=== PATIENT | female | born 1960 | race Caucasian/White ===

== ENCOUNTER 2016-07-15 02:03 | Emergency (ER) | payer BC ==
--- NOTE | 2016-07-15 02:09 | PDOC ---
[id number] 4d THROAT PAIN Time Seen by Provider: 07/15/16 02:09 - History of Present Illness Initial Comments: This 56-year-old woman with a history of hypertension/hyperlipidemia, presents with left-sided neck pain that awakened her from sleep. The patient states that the pain radiates from the mid neck area up to her left ear. She states that she feels like she might be "getting sick", which she explains as feeling that she might be getting a viral infection. She denies nasal congestion/sore throat/fever/chills. She has no shortness of breath, chest pain, nausea or diaphoresis. Patient states that she has no history of middle ear infections or effusions. She has however had pain in her ears during descent of airplane while traveling. Past History - Past Medical History Allergies/Adverse Reactions: Allergies Allergy/AdvReac Type Severity Reaction Status Date / Time No Known Allergies Allergy Verified 07/15/16 02:04 Home Medications: Ambulatory Orders Metoprolol Tartrate [Lopressor -] 25 mg PO BID 10/30/14 Anemia: No Asthma: No Cancer: No Cardiac Disorders: No CVA: No COPD: No CHF: No Dementia: No Diabetes: No GI Disorders: Yes (ABD. PAIN) Disorders: No HTN: Yes Hypercholesterolemia: Yes HIV: No Liver Disease: No Suicide Attempt (Hx): No Seizures: No Thyroid Disease: No - Surgical History Abdominal Surgery: No Appendectomy: No Cardiac Surgery: No Cholecystectomy: Yes Lung Surgery: No Neurologic Surgery: No Orthopedic Surgery: No - Reproductive History (#): 4 Para: 4 - Psycho/Social/Smoking Cessation Hx Anxiety: No Suicidal Ideation: No Smoking Status: No Smoking History: Never smoked Have you smoked in the past 12 months: No Number of Cigarettes Smoked Daily: 0 Hx Alcohol Use: No Drug/Substance Use Hx: No Substance Use Type: None Hx Substance Use Treatment: No Review of Systems - Review of Systems Able to Perform ROS?: Yes Comments:: 12 point review of systems is negative except for what is noted in the history of present illness *Physical Exam - Physical Exam Comments: GENERAL: Adult female, alert and oriented 3 in no acute distress HEAD: Normal with no signs of trauma. EYES: PERRLA, EOMI, sclera anicteric, conjunctiva clear. ENT: Ears normal (TM and canals bilaterally), nares patent, oropharynx clear without exudates. Dry mucous membranes. NECK: Normal range of motion, supple without lymphadenopathy, JVD, or masses. Mild tenderness of the left mid neck without masses or bruits LUNGS: Breath sounds equal, clear to auscultation bilaterally. No wheezes, and no crackles. HEART:Regular rate and rhythm, normal S1 and S2 without murmur, rub or gallop. ABDOMEN:.normal bowel sounds No guarding,tenderness or rebound.No masses No distention. EXTREMITIES: Normal range of motion, no edema. No clubbing or cyanosis. No erythema, or tenderness. NEUROLOGICAL: Cranial nerves II through XII grossly intact. Normal speech. No focal neurological deficits. MUSCULOSKELETAL: Back non-tender to palpation, no CVA tenderness SKIN: Warm, Dry, normal turgor, no rashes or lesions noted. Medical Decision Making - Medical Decision Making Although the medical presentation most consistent with eustachian tube dysfunction, because the patient has a history of hypertension and hyperlipidemia, twelve-lead electrocardiogram will be performed. EKG shows normal sinus rhythm at 68 beats for minute; axis, intervals and wave forms are all normal. there isno evidence of acute ST or T-wave abnormalities. Patient advised to take antihistamine such as chlorpheniramine; decongestants unfortunately are contraindicated with her history of hypertension. Patient does not have an ENT doctor; referral information with Dr. Rodríguez Machuca will be given to her with whom she should follow-up if she continues to have pain *DC/Admit/Observation/Transfer Diagnosis at time of Disposition: Eustachian tube dysfunction Qualifiers: Laterality: left Qualified Code(s): H69.82 - Other specified disorders of Eustachian tube, left ear - Discharge Dispostion Disposition: HOME Condition at time of disposition: Stable - Referrals Referrals: Rodríguez Machuca MD [Staff Physician] - - Patient Instructions Printed Discharge Instructions: DI for Eustachian Tube Dysfunction-Adult Additional Instructions: rest, drink plenty of fluids can use antihistamine(such as chlorpheniramine, safe for people with high blood pressure) use motrin as needed for pain followup with ENT(Dr Machuca)if pain persists see your general doctor within the next week return to ER if pain worsens
[2016-07-15 02:10] VITALS: PULSE 72; TEMP 97.6; BMI 25.6
[2016-07-15 03:05] VITALS: BP 149/95
[2016-07-15] MEDS ORDERED: IBUPROFEN 600 MG TABLET (FP) PO ONE ×2 (03:10→03:12)
--- NOTE | 2016-07-16 12:38 | EKG ---
Test Reason : Blood Pressure : / mmHG Vent. Rate : 068 BPM Atrial Rate : 068 BPM P-R Int : 142 ms QRS Dur : 086 ms QT Int : 420 ms P-R-T Axes : 022 015 025 degrees QTc Int : 446 ms SINUS RHYTHM NONSPECIFIC ST ABNORMALITY WHEN COMPARED WITH ECG OF 27-JUN-2015 12:49, NO SIGNIFICANT CHANGE WAS FOUND Confirmed by VANE JOSEPH MD ([id number]) on 07/16/2016 12:38:28 PM Referred By: MD REYES Confirmed By:VANE JOSEPH MD
== END 2016-07-15 03:14 | disposition home or self-care (01) ==
LOC: FER 02:03
DX: H69.82 Other specified disorders of Eustachian tube, left ear (principal); I10 Essential (primary) hypertension; E78.00 Pure hypercholesterolemia, unspecified
CPT/HCPCS: 93005; 99281-25

== ENCOUNTER 2016-11-26 10:59 | Emergency (ER) | payer BC ==
[2016-11-26 11:06] VITALS: BP 164/91; PULSE 82; TEMP 97.8; BMI 25.6
[2016-11-26] MEDS ORDERED: KETOROLAC TROMETHAMINE 60 MG/2 ML VIAL IM ONE (11:45)
[2016-11-26] MEDS ORDERED: KETOROLAC TROMETHAMINE 60 MG/2 ML VIAL ONE (11:49)
--- NOTE | 2016-11-26 12:01 | PDOC ---
History of Present Illness - General Chief Complaint: Back Pain Stated Complaint: BACK PAIN Time Seen by Provider: 11/26/16 11:33 History Source: Patient Exam Limitations: No Limitations - History of Present Illness Initial Comments: 11/26/16 11:41 CHIEF COMPLAINT: Left shoulder pain. HISTORY OF PRESENT ILLNESS: Patient is an otherwise healthy 56-year-old female presents with left shoulder pain, 10 out of 10. Patient states that she was lifting a heavy bed while she was in [place] and has been unable to move left shoulder. Reports pain as stabbing. PMH: None MEDS:None ALLERGIES: None REVIEW OF SYSTEMS: GENERAL/CONSTITUTIONAL: Awake alert and oriented HEAD, EYES, EARS, NOSE AND THROAT: No change in vision. No facial edema, no bruising. NO active bleeding. Nares intact. RESPIRATORY: No cough, wheezing, or hemoptysis. CARDIAC: Denies chest pain, no shortness of breathe. MUSCULOSKELETAL: No spinal point tenderness, decreased range of motion to left shoulder.. NO CVA tenderness. No lateral neck pain. GI/: Denies abdominal pain, no nausea or vomiting, no bloody stool, no Hematuria. SKIN : No erythema or bruising noted. No abrasion or lacerations. NEUROLOGIC: No loss of consciousness, no numbness or tingling. PHYSICAL EXAM: GENERAL: Awake and alert and oriented x3. EYES: The pupils are equal, round, and reactive to light, with clear, conjunctiva. Good extraocular movement. No nystagmus NOSE: No nasal trauma . Midface stable EARS: The ear canals and tympanic membranes are normal without trauma. No drainage. NECK: No Lower cervical C-spine tenderness, no pain with chin to chest. CHEST: The lungs are clear without crackles, or wheezes. No subcutaneous emphysema. No crepitus. HEART: Heart is regular rhythm, with normal S1 and S2, no murmurs. ABDOMEN: The abdomen is soft and nontender with normal bowel sounds. There is no guarding or rebound. MUSCULOSKELETAL: No spinal point tenderness. No bruising or erythema. Pelvis stable. EXTREMITIES: No visible traumatic injury. Left frozen shoulder, decreased mobility unable to abduct arm. Unable to pronate and supinate hand. NEUROLOGICAL:Mental status: The patient is oriented x3. No Generalized headache , Romberg - SKIN: Without edema, erythema or bruising. No abrasions or lacerations. Past History - Past Medical History Allergies/Adverse Reactions: Allergies Allergy/AdvReac Type Severity Reaction Status Date / Time No Known Allergies Allergy Verified 11/26/16 11:05 Home Medications: Ambulatory Orders Metoprolol Tartrate [Lopressor -] 50 mg PO BID 10/30/14 Ibuprofen [Motrin -] 600 mg PO TID #21 tablet 11/26/16 Oxycodone HCl/Acetaminophen [Percocet 5-325 mg Tablet] 1 tab PO Q6H #12 tablet MDD 4 11/26/16 Anemia: No Asthma: No Cancer: No Cardiac Disorders: No CVA: No COPD: No CHF: No Dementia: No Diabetes: No GI Disorders: Yes (ABD. PAIN) Disorders: No HTN: Yes Hypercholesterolemia: Yes HIV: No Liver Disease: No Suicide Attempt (Hx): No Seizures: No Thyroid Disease: No - Surgical History Abdominal Surgery: No Appendectomy: No Cardiac Surgery: No Cholecystectomy: No Lung Surgery: No Neurologic Surgery: No Orthopedic Surgery: No - Reproductive History (#): 4 Para: 4 - Psycho/Social/Smoking Cessation Hx Anxiety: No Suicidal Ideation: No Smoking Status: No Smoking History: Never smoked Have you smoked in the past 12 months: No Number of Cigarettes Smoked Daily: 0 Hx Alcohol Use: No Drug/Substance Use Hx: No Substance Use Type: None Hx Substance Use Treatment: No *Physical Exam - Vital Signs Last Vital Signs Temp Pulse Resp BP Pulse Ox 97.8 F 82 20 164/91 98 11/26/16 11:02 11/26/16 11:02 11/26/16 11:02 11/26/16 11:02 11/26/16 11:02 Medical Decision Making - Medical Decision Making 11/26/16 12:42 A/P: Patient here for left shoulder pain. Toradol 60 mg IM times one given, patient states the pain started after lifting heavy mattress. X-ray demonstrated osteopenia small rounded calcific density measuring 2 mm at the level office. Aspect of the glenohumeral joint. This could represent a small joints body or calcification in the tendon. Will treat patient for tendinitis of shoulder, arm sling, follow-up with orthopedics, anti-inflammatories. I discussed the physical exam findings, ancillary test results and final diagnoses with the patient. I answered all of the patient's questions. The patient was satisfied with the care received and felt comfortable with the discharge plan and treatment plan. The patient will call to arrange follow-up and will return to the Emergency Department with any new, persistent or worsening symptoms. *DC/Admit/Observation/Transfer Diagnosis at time of Disposition: Shoulder tendinitis Qualifiers: Laterality: left Qualified Code(s): M75.82 - Other shoulder lesions, left shoulder - Discharge Dispostion Disposition: HOME Condition at time of disposition: Good Admit: No - Prescriptions Prescriptions: Ibuprofen [Motrin -] 600 mg PO TID #21 tablet Oxycodone HCl/Acetaminophen [Percocet 5-325 mg Tablet] 1 tab PO Q6H #12 tablet MDD 4 - Referrals Referrals: Hunter Mayes MD [Primary Care Provider] - Michael Burt MD [Staff Physician] - - Patient Instructions Printed Discharge Instructions: Shoulder Tendinopathy Additional Instructions: 1. Please return to the emergency department with any redness, swelling, increased pain, or any other concerns. 2. Keep splint on. 3. Please follow up in the office of Dr. Burt within a week if pain persists. 4. No weightbearing 5. Ice and elevate when at rest. 6. Motrin for pain - Post Discharge Activity Work/School Note: Back to Work
== END 2016-11-26 12:57 | disposition home or self-care (01) ==
LOC: JERFT 10:59
PROC: 3E0233Z Introduction of Anti-inflammatory into Muscle, Percutaneous Approach (ICD-10-PCS; principal; 2016-11-26)
DX: M75.82 Other shoulder lesions, left shoulder (principal); I10 Essential (primary) hypertension; E78.00 Pure hypercholesterolemia, unspecified
CPT/HCPCS: 73030-TC-LT; 99281-25

== ENCOUNTER 2017-07-14 08:30 | Day surgery (SDC) | payer BC ==
[2017-07-13 10:34] VITALS: BMI 25.2
[2017-07-14] MEDS ORDERED: MIDAZOLAM HCL 2 MG/2 ML SINGLE DOSE VIAL ONE (10:59)
[2017-07-14] MEDS ORDERED: PROPOFOL 20 ML ONE (10:59)
[2017-07-14] MEDS ORDERED: BETAMET ACET/BETAMET NA PH 30 MG/5 ML VIAL IJ ONE (11:11)
[2017-07-14] MEDS ORDERED: BUPIVACAINE HCL/PF 0.25% (2.5MG/ML) 10 ML VIAL IJ ONE (11:11)
[2017-07-14] MEDS ORDERED: LIDOCAINE HCL 1%, 10 MG/ML (50 mL VIAL) IJ ONE (11:11)
[2017-07-14] MEDS ORDERED: IOHEXOL 180 MG/1 ML ML IJ ONE (11:11)
[2017-07-14] MEDS ORDERED: LIDOCAINE HCL 1%, 10 MG/ML (20ML VIAL) ONE (12:07)
[2017-07-14] MEDS ORDERED: BUPIVACAINE HCL/PF 0.25% (2.5MG/ML) 10 ML VIAL ONE (12:08)
[2017-07-14] MEDS ORDERED: BETAMET ACET/BETAMET NA PH 30 MG/5 ML VIAL ONE (12:08)
[2017-07-14 12:19] VITALS: BP 112/64; PULSE 79; TEMP 97.9
--- NOTE | 2017-07-14 15:38 | PROC ---
Procedure Note Procedure: Date of service: 07/14/2017 Preoperative Diagnosis: Low back pain and lumbar radiculopathy on Left Postoperative Diagnosis: Same Procedure Performed: Lumbar Epidural Steroid Injection (LESI) on Left L4-5 with dye under Fluoroscopy Anesthesia: Local / MAC Anesthesiologist: Procedure: I discussed with the patient in detail about the risks, benefits, and alternatives to treatment not only limited to infection, headache, numbness , weakness, and injury to nerves, blood vessels and muscles. The patient understood, agreed and signed the written consent. The patient was placed in the prone position with the head, abdomen and legs supported with the pillows. The lumbosacral area was prepped and draped with Betadine times three in a sterile fashion. Lumbar vertebrae were identified under the C-arm. At L4-5 level on the Left side, 3 ml of 1 % Lidocaine was infiltrated into the skin and subcutaneous tissue. A 3 inch, #20 gauge Tuohy needle was advanced to the epidural space with loss of resistance technique under fluoroscopic guidance. Aspiration was negative for cerebrospinal fluid and blood. 2ml of Omnipaque ( radio-opaque dye) was injected to confirm the tip of the needle into epidural space and spread of dye. There was no CSF or vascular spread. The spread of dye was noted cranially and caudally on epidurogram. Aspiration was done again which was negative. A solution of 2.5 ml of Celestone, 2.5 ml of 0.25% Marcaine and 2 ml of preservative-free Normal Saline and a total of 5 ml was injected slowly. While Tuohy needle was withdrawn 2.0 ml of 1 % Lidocaine was infiltrated. Bleeding was checked. Betadine was wiped off. A sterile bandage was placed. The patient tolerated the procedure well. There were no immediate complications. The patient was transferred to the recovery room. The patient was observed for some time and discharged as per ASU criteria. The patient was told to apply ice at the injection site. Follow up appointment was given and also call my office at [phone]. If there is any problem, call my office or report to Emergency Room. Jonathon Billy M.D.
== END 2017-07-14 12:20 | disposition home or self-care (01) ==
LOC: JASU-SURG 08:30
PROVIDERS: ATTEND Physical Medicine & Rehabilitation
PROC: 3E0R33Z Introduction of Anti-inflammatory into Spinal Canal, Percutaneous Approach (ICD-10-PCS; 2017-07-14)
PROC: B01BYZZ Fluoroscopy of Spinal Cord using Other Contrast (ICD-10-PCS; 2017-07-14)
PROC: 3E0R3BZ Introduction of Anesthetic Agent into Spinal Canal, Percutaneous Approach (ICD-10-PCS; principal; 2017-07-14 08:30)
DX: M54.16 Radiculopathy, lumbar region (principal); M54.5 Low back pain
CPT/HCPCS: 76000-TC-FY

== ENCOUNTER 2018-02-21 16:16 | Emergency (ER) | payer BC ==
[2018-02-21] MEDS ORDERED: KETOROLAC TROMETHAMINE 60 MG/2 ML VIAL IM ONE (16:38)
--- NOTE | 2018-02-21 16:39 | PDOC ---
History of Present Illness - General Chief Complaint: Pain Stated Complaint: RT ABD AND RT BACK PAIN Time Seen by Provider: 02/21/18 16:18 - History of Present Illness Initial Comments: 02/21/18 16:38 Ms. Riley is a 58 yo female w/ pmh of HTN and HLD who presents for evaluation of RLQ pain. Patient reports this had initially started approximately 5 days ago however quickly resolved and started again this morning. Patient describes the pain as RLQ in nature radiating around to her back and intermittent every 10 minutes. She also endorses some nausea with the pain when it occurs. Describes pain as sharp and 10/10 in nature. The patient denies chest pain, shortness of breath, headache and dizziness. Denies fever, chills, vomit, diarrhea and constipation. Denies dysuria, frequency, urgency and hematuria. Allergies: NKDA Past History - Past Medical History Allergies/Adverse Reactions: Allergies Allergy/AdvReac Type Severity Reaction Status Date / Time No Known Allergies Allergy Verified 02/21/18 16:17 Home Medications: Ambulatory Orders Amlodipine Besylate 5 mg PO DAILY 07/13/17 Atorvastatin Ca [Lipitor] 10 mg PO HS 02/21/18 Ciprofloxacin [Cipro -] 250 mg PO BID #10 tablet 02/21/18 Anemia: No Asthma: No Cancer: No Cardiac Disorders: No CVA: No COPD: No CHF: No Dementia: No Diabetes: No GI Disorders: Yes (ABD. PAIN) Disorders: No HTN: Yes Hypercholesterolemia: Yes Liver Disease: No Psychiatric Problems: Yes (ANXIETY.) Seizures: No Thyroid Disease: No - Surgical History Abdominal Surgery: No Appendectomy: No Cardiac Surgery: No Cholecystectomy: No Lung Surgery: No Neurologic Surgery: No Orthopedic Surgery: No - Reproductive History (#): 4 Para: 4 - Suicide/Smoking/Psychosocial Hx Smoking Status: No Smoking History: Never smoked Have you smoked in the past 12 months: No Number of Cigarettes Smoked Daily: 0 Hx Alcohol Use: Yes (RARE) Drug/Substance Use Hx: No Substance Use Type: Alcohol Hx Substance Use Treatment: No Review of Systems - Review of Systems Comments:: 02/21/18 16:42 GENERAL/CONSTITUTIONAL: No fever or chills. No weakness. HEAD, EYES, EARS, NOSE AND THROAT: No change in vision. No ear pain or discharge. No sore throat. CARDIOVASCULAR: No chest pain or shortness of breath RESPIRATORY: No cough, wheezing, or hemoptysis. GASTROINTESTINAL: +RLQ pain with Nausea as described, no vomiting, diarrhea or constipation. GENITOURINARY: No dysuria, frequency, or change in urination. MUSCULOSKELETAL: No joint or muscle swelling or pain. No neck or back pain. SKIN: No rash NEUROLOGIC: No headache, vertigo, loss of consciousness, or change in strength/ sensation. ENDOCRINE: No increased thirst. No abnormal weight change HEMATOLOGIC/LYMPHATIC: No anemia, easy bleeding, or history of blood clots. ALLERGIC/IMMUNOLOGIC: No hives or skin allergy. *Physical Exam - Physical Exam Comments: 02/21/18 16:44 GENERAL: Awake, alert, and fully oriented, in no acute distress HEAD: No signs of trauma, normocephalic, atraumatic EYES: PERRLA, EOMI, sclera anicteric, conjunctiva clear ENT: Auricles normal inspection, hearing grossly normal, nares patent, oropharynx clear without exudates. Moist mucosa NECK: Normal ROM, supple, no lymphadenopathy, JVD, or masses LUNGS: No distress, speaks full sentences, clear to auscultation bilaterally HEART: Regular rate and rhythm, normal S1 and S2, no murmurs, rubs or gallops, peripheral pulses normal and equal bilaterally. ABDOMEN: Soft, nontender, normoactive bowel sounds. No guarding, no rebound. No masses EXTREMITIES: Normal inspection, Normal range of motion, no edema. No clubbing or cyanosis. NEUROLOGICAL: Cranial nerves II through XII grossly intact. Normal speech, normal gait, no focal sensorimotor deficits SKIN: Warm, Dry, normal turgor, no rashes or lesions noted. ED Treatment Course - LABORATORY CBC & Chemistry Diagram: 02/21/18 17:34 02/21/18 17:34 Medical Decision Making - Medical Decision Making 02/21/18 17:07 Ms. Riley is a 58 yo female w/ pmh as described who presents for evaluation of colicky RLQ pain concerning for nephrolithiasis vs. UTI vs. gynecological problem. Patient non-tender to palpation however continuing to have intermittent painful episodes. CT spiral ordered in addition to basic labs for further evaluation. Toradol given for symptomatic relief. Patient refused gynecological evaluation. Discussed that this would leave exam incomplete and could necessitate missing a gynecological problem however patient persisted in refusal. 02/21/18 18:[address] negative for acute process. ABX sent to patient's pharmacy and started in ED for minor UTI as below. Discussed with patient that she will need to follow-up with [facility] as soon as possible for further evaluation. Patient verbalized understanding and agreement with this plan and will comply. Discharging to home. Laboratory Results - last 24 hr 02/21/18 02/21/18 02/21/18 16:52 17:34 17:34 WBC 5.9 RBC 4.77 Hgb 12.9 Hct 40.0 MCV 83.8 MCH 27.1 MCHC 32.3 RDW 13.0 Plt Count 239 MPV 9.6 Absolute Neuts (auto) 3.4 Neutrophils % 57.3 Lymphocytes % 31.6 Monocytes % 9.1 Eosinophils % 1.7 Basophils % 0.3 Sodium 138 Potassium 3.6 Chloride 103 Carbon Dioxide 25 Anion Gap 10 BUN 17 Creatinine 0.6 Creat Clearance w eGFR > 60 Random Glucose 116 H Calcium 9.3 Total Bilirubin 0.3 AST 33 ALT 36 Alkaline Phosphatase 105 H Total Protein 7.1 Albumin 4.2 Urine Color Yellow Urine Appearance Clear Urine pH 7.5 Ur Specific [place] 1.020 Urine Protein Negative Urine Glucose (UA) Negative Urine Ketones Negative Urine Blood Trace-intact H Urine Nitrite Negative Urine Bilirubin Negative Urine Urobilinogen 0.2 Ur Leukocyte Esterase Negative Urine RBC 2-5 Urine WBC 0-2 Ur Epithelial Cells Few Amorphous Urates 2+ Urine Bacteria 1+ *DC/Admit/Observation/Transfer Diagnosis at time of Disposition: Abdominal pain Qualifiers: Abdominal location: unspecified location Qualified Code(s): R10.9 - Unspecified abdominal pain UTI (urinary tract infection) Qualifiers: Urinary tract infection type: site unspecified Hematuria presence: without hematuria Qualified Code(s): N39.0 - Urinary tract infection, site not specified - Discharge Dispostion Disposition: HOME - Prescriptions Prescriptions: Ciprofloxacin [Cipro -] 250 mg PO BID #10 tablet - Referrals - Patient Instructions Printed Discharge Instructions: DI for Urinary Tract Infection (UTI) Additional Instructions: You were evaluated today in the emergency room for your pain. CT scan was negative for any cause of this pain. You were also found to have a minor UTI for which antibiotics were started and a prescription was sent to your pharmacy. Please take all medications as proscribed. We discussed risks and benefits of a complete gynecological exam and you elected to delay this exam until you are able to see [facility] tomorrow. Please follow-up as discussed and return immediately to ER if any increase in pain, fever, chills, or other concerning symptoms. - Post Discharge Activity
--- NOTE | 2018-02-21 16:42 | PDOC ---
Attending Attestation - Resident Resident Name: Gabriel Casey - ED Attending Attestation I have performed the following: I have examined & evaluated the patient, The case was reviewed & discussed with the resident, I agree w/resident's findings & plan - HPI HPI: 02/21/18 16:38 58 y/o female with right flank pain on/off for several days. No hx of kidney stones. No fever or chills. Mild nauseousness. No vomiting or diarrhea. No fall or trauma. No lifting. Not worse with movement. Denies discharge or dysuira. Has not taken anything for the pain. - Physicial Exam PE: 02/21/18 16:40 VS stable HEENT unremarkable Heart: RRR w/o murmur Lungs: CTA b/l, no wheezes rhonchi rales Abdomen: soft nontender, no RLQ or LLQ tenderness, no RUQ or LUQ tenderness, no abdominal mass or pulsatile mass [facility]: deferred as per patient, risks and benefits explained to pt Ext: no C/C/E Neuro: grossly intact with no focal deficits noted 02/21/18 18:16 Pt is doing well Will treat for UTI with Cipro Tylenol, rest, fluids If worsen return to ER - Medical Decision Making 02/21/18 18:17 CT negative for stone Final Dx: UTI Will treat with fluids, rest, Tylenol Cipro 250 mg 2x/day for 5 days If worsen return to ER Family in agreement with plan May need US as out patient [facility] deferred as pt, risks and benefits explained to pt Agree with DR. Casey's plan
[2018-02-21 16:52] VITALS: BP 140/78; PULSE 79; TEMP 98.7; BMI 23.9
[2018-02-21 17:14] LABS: PH,URINE 7.5 (4.5-8); URINE APPEARANCE Clear; URINE BILIRUBIN Negative (NEGATIVE); URINE COLOR Yellow; URINE GLUCOSE (UA) Negative (NEGATIVE); URINE KETONE Negative (NEGATIVE); URINE LEUK ESTERASE Negative (NEGATIVE); URINE NITRITE Negative (NEGATIVE); URINE PROTEIN Negative (NEGATIVE); URINE UROBILINOGEN 0.2 (0.2-1.0)
[2018-02-21] MEDS ORDERED: KETOROLAC TROMETHAMINE 60 MG/2 ML VIAL ONE (17:17)
[2018-02-21 17:28] LABS: URINE WBC 0-2 (0-5)
[2018-02-21 17:29] LABS: AMORP URATES 2+ /hpf (NONE SEEN); EPI CELLS FEW /HPF; URINE BACTERIA 1+ /hpf (NEGATIVE)
[2018-02-21 17:55] LABS: BASO % 0.3 % (0-2.0); EOS % 1.7 % (0-4.5); HEMOGLOBIN 12.9 GM/dl (10.7-15.3); LYMPH % 31.6 % (8-40); MCH 27.1 pg (25.7-33.7); MCHC 32.3 g/dl (32.0-36.0); MEAN CELL VOLUME 83.8 fl (80-96); MEAN PLT VOLUME 9.6 fl (7.5-11.1); MONO % 9.1 % (3.8-10.2); NEUT % 57.3 % (42.8-82.8); PLATELET COUNT 239 K/MM3 (134-434); RBC 4.77 M/mm3 (3.60-5.2); WHITE BLOOD COUNT 5.9 K/mm3 (4.0-10.8)
[2018-02-21 18:03] LABS: ALBUMIN 4.2 g/dl (3.5-5.0); ALK PHOS 105 U/L (32-92); ANION GAP 10 MMOL/L (8-16); BILIRUBIN,TOTAL 0.3 mg/dl (0.2-1.0); BLOOD UREA NITROGEN 17 mg/dl (7-18); CALCIUM 9.3 mg/dl (8.4-10.2); CHLORIDE 103 mmol/L (98-107); CO2 25 mmol/L (22-28); CREATININE 0.6 mg/dl (0.6-1.3); GLUCOSE,RANDOM 116 mg/dl (74-106); POTASSIUM 3.6 mmol/L (3.5-5.1); SGOT/AST 33 U/L (10-42); SGPT/ALT 36 U/L (10-40); SODIUM 138 mmol/L (136-145); TOT PROT 7.1 g/dl (6.4-8.3)
[2018-02-21] MEDS ORDERED: CIPROFLOXACIN 250 MG TABLET (RESTRICTED TO ID) PO ONE ×2 (18:16→18:25)
== END 2018-02-21 18:35 | disposition home or self-care (01) ==
LOC: FER 16:16
PROC: 3E0233Z Introduction of Anti-inflammatory into Muscle, Percutaneous Approach (ICD-10-PCS; principal; 2018-02-21)
DX: N39.0 Urinary tract infection, site not specified (principal); R10.9 Unspecified abdominal pain; F41.9 Anxiety disorder, unspecified; I10 Essential (primary) hypertension; E78.00 Pure hypercholesterolemia, unspecified
CPT/HCPCS: 36415; 74176; 80053; 81003; 81015; 85025; 87086; 99281-25

== ENCOUNTER 2018-06-03 12:21 | Emergency (ER) | payer BC ==
[2018-06-03 12:31] VITALS: BP 146/83; PULSE 99; TEMP 97.9; BMI 24.7
[2018-06-03] MEDS ORDERED: KETOROLAC TROMETHAMINE 30 MG/1 ML VIAL IVPUSH ONE (13:21)
--- NOTE | 2018-06-03 13:22 | PDOC ---
History of Present Illness - General Chief Complaint: Chest Pain Stated Complaint: TINGLING HEADACHE/chest pain Time Seen by Provider: 06/03/18 12:35 History Source: Patient Exam Limitations: No Limitations - History of Present Illness Initial Comments: 06/03/18 13:24 58 -year-old female presents to the emergency room with complaints of intermittent chest pressure x 2 weeks and tingling to left side of head radiating to left neck x 1 month. Pt denies visual changes, nausea, weakness, fever or chills. Pt with hx of anxiety and headache in the past with similar s/ s. Timing/Duration: other Severity: moderate Associated Symptoms: reports: chest pain, headaches Past History - Travel Traveled outside of the country in the last 30 days: No Close contact w/someone who was outside of country & ill: No - Past Medical History Allergies/Adverse Reactions: Allergies Allergy/AdvReac Type Severity Reaction Status Date / Time No Known Allergies Allergy Verified 06/03/18 12:28 Home Medications: Ambulatory Orders Amlodipine Besylate 5 mg PO DAILY 07/13/17 Atorvastatin Ca [Lipitor] 10 mg PO HS 02/21/18 Ciprofloxacin [Cipro -] 250 mg PO BID #10 tablet 02/21/18 Anemia: No Asthma: No Cancer: No Cardiac Disorders: No CVA: No COPD: No CHF: No Dementia: No Diabetes: No GI Disorders: Yes (ABD. PAIN) Disorders: No HTN: Yes Hypercholesterolemia: Yes Liver Disease: No Psychiatric Problems: Yes (ANXIETY.) Seizures: No Thyroid Disease: No - Surgical History Abdominal Surgery: No Appendectomy: No Cardiac Surgery: No Cholecystectomy: No Lung Surgery: No Neurologic Surgery: No Orthopedic Surgery: No - Reproductive History (#): 4 Para: 4 - Suicide/Smoking/Psychosocial Hx Smoking Status: No Smoking History: Never smoked Have you smoked in the past 12 months: No Number of Cigarettes Smoked Daily: 0 Information on smoking cessation initiated: No Hx Alcohol Use: No Drug/Substance Use Hx: No Substance Use Type: Alcohol Hx Substance Use Treatment: No Patient Lives Alone: No Lives with/in: spouse/SO Review of Systems - Review of Systems Able to Perform ROS?: No Is the patient limited Maori proficient: No Constitutional: No: Symptoms Reported, Unintentional Wgt. Loss Respiratory: No: Symptoms reported Cardiac (ROS): Yes: Chest Pain. No: Edema, Lightheadedness, Palpitations, Syncope, Chest Tightness ABD/GI: No: Symptoms Reported : No: Symptoms Reported Musculoskeletal: Yes: Neck Pain (upper ) Integumentary: No: Symptoms Reported Neurological: Yes: Headache. No: Numbness, Paresthesia, Tingling, Tremors, Weakness, Dizziness Endocrine: No: Symptoms Reported Hematologic/Lymphatic: No: Symptoms Reported *Physical Exam - Vital Signs Last Vital Signs Temp Pulse Resp BP Pulse Ox 97.9 F 99 H 16 146/83 100 06/03/18 12:25 06/03/18 12:25 06/03/18 12:25 06/03/18 12:25 06/03/18 12:25 - Physical Exam General Appearance: Yes: Nourished, Appropriately Dressed. No: Apparent Distress HEENT: positive: EOMI, TITO, TMs Normal, Pharynx Normal. negative: Pale Conjunctivae Neck: positive: Supple Respiratory/Chest: positive: Lungs Clear, Normal Breath Sounds. negative: Chest Tender, Respiratory Distress, Accessory Muscle Use Cardiovascular: positive: Regular Rhythm, Regular Rate. negative: Murmur Gastrointestinal/Abdominal: positive: Soft. negative: Other Integumentary: positive: Normal Color, Warm, Moist Neurologic: positive: Motor Strength 5/5. negative: Normal Mood/Affect (anxious ) Moderate Sedation - Procedure Monitoring Vital Signs: Procedure Monitoring Vital Signs Temperature 97.9 F 06/03/18 12:25 Pulse Rate 99 H 06/03/18 12:25 Respiratory Rate 16 06/03/18 12:25 Blood Pressure 146/83 06/03/18 12:25 O2 Sat by Pulse Oximetry (%) 100 06/03/18 12:25 ED Treatment Course - LABORATORY CBC & Chemistry Diagram: 06/03/18 13:15 06/03/18 13:15 - RADIOLOGY Radiology Studies Ordered: Category Date Time Status CERVICAL SPINE CT W/O CONTR [CT] Stat CT Scan 06/03/18 12:[address] WITHOUT CONTRAST [CT] Stat CT Scan 06/03/18 12:40 Ordered CHEST PA & LAT [RAD] Stat Radiology 06/03/18 12:40 Ordered Medical Decision Making - Medical Decision Making 06/03/18 13:30 CC: lt sided CP with Lt sided headachex 1 month Exam: no acute findings, Plan: labs, ekg, toradol, and ct ordered 06/03/18 15:01 CT of the head shows no mass lesion, gross acute infarct or intracranial hemorrhage identified. A small focal low attenuation density is seen along the anterior margin of the right frontal horn which may represent chronic microvascular ischemic disease changes versus chronic lacunar infarct, unchanged since 2014. C-spine shows C5-C6 mild degenerative joint disease with mild bilateral hypertrophy with narrowing of the neural Foramina Patient states feeling better after receiving Toradol. 06/03/18 15:02 Selected Entries 06/03/18 12:25 Temperature 97.9 F Pulse Rate 99 H Respiratory 16 Rate Blood Pressure 146/83 Blood Pressure 104 Mean O2 Sat by Pulse 100 Oximetry (%) Weight 63.503 kg Laboratory Tests 06/03/18 06/03/18 13:15 13:15 WBC 5.5 Hgb 14.2 Hct 41.7 Absolute Neuts (auto) 3.5 Monocytes % 10.7 H Chloride 104 Carbon Dioxide 30 Anion Gap 6 L BUN 15 Creatinine 0.7 Creat Clearance w eGFR > 60 Calcium 9.3 Total Bilirubin 0.3 AST 30 ALT 53 Alkaline Phosphatase 120 H Creatine Kinase 75 Troponin I < 0.02 Total Protein 8.4 H Albumin 4.4 *DC/Admit/Observation/Transfer Diagnosis at time of Disposition: Chest wall pain, Headache - Discharge Dispostion Disposition: HOME Condition at time of disposition: Improved - Referrals Referrals: Hunter Mayes MD [Primary Care Provider] - Gunner Avina MD [Staff Physician] - - Patient Instructions Printed Discharge Instructions: DI for Atypical Chest Pain, DI for Headache Additional Instructions: At this time recommend follow-up with your doctor and/or food service hotel runner. I have also given referral to a neurologist secondary to your head discomfort - Post Discharge Activity
[2018-06-03] MEDS ORDERED: KETOROLAC TROMETHAMINE 30 MG/1 ML VIAL ONE (13:34)
[2018-06-03 13:36] LABS: BASO % 0.4 % (0-2.0); EOS % 1.4 % (0-4.5); HEMATOCRIT 41.7 % (32.4-45.2); HEMOGLOBIN 14.2 GM/dL (10.7-15.3); LYMPH % 23.8 % (8-40); MCH 27.8 pg (25.7-33.7); MEAN CELL VOLUME 81.8 fl (80-96); MONO % 10.7 % (3.8-10.2); NEUT % 63.7 % (42.8-82.8); PLATELET COUNT 216 K/MM3 (134-434); RDW 13.8 % (11.6-15.6); WHITE BLOOD COUNT 5.5 K/mm3 (4.0-10.0)
--- NOTE | 2018-06-03 13:36 | PDOC ---
*Physical Exam - Vital Signs Last Vital Signs Temp Pulse Resp BP Pulse Ox 97.9 F 99 H 16 146/83 100 06/03/18 12:25 06/03/18 12:25 06/03/18 12:25 06/03/18 12:25 06/03/18 12:25 ED Treatment Course - LABORATORY CBC & Chemistry Diagram: 06/03/18 13:15 06/03/18 13:15 Medical Decision Making - Medical Decision Making 06/03/18 13:36 This is a 58 yo F who presents with intermittent chest pressure x 2 weeks and tingling to left side of head. Pt seen by Midlevel Provider under my direct supervision Ancillary studies reviewed I agree with plan as outlined by Midlevel Provider 06/03/18 15:20 *DC/Admit/Observation/Transfer Diagnosis at time of Disposition: Chest wall pain, Headache - Discharge Dispostion Disposition: HOME Condition at time of disposition: Improved - Referrals Referrals: Gunner Avina MD [Staff Physician] - Hunter Mayes MD [Primary Care Provider] - - Patient Instructions Printed Discharge Instructions: DI for Atypical Chest Pain, DI for Headache Additional Instructions: At this time recommend follow-up with your doctor and/or deputy clerk of superior court. I have also given referral to a neurologist secondary to your head discomfort - Post Discharge Activity
[2018-06-03 14:01] LABS: ALBUMIN 4.4 g/dl (3.4-5.0); ALK PHOS 120 U/L (45-117); ANION GAP 6 MMOL/L (8-16); BILIRUBIN,TOTAL 0.3 mg/dL (0.2-1); BLOOD UREA NITROGEN 15 mg/dL (7-18); CALCIUM 9.3 mg/dL (8.5-10.1); CHLORIDE 104 mmol/L (98-107); CO2 30 mmol/L (21-32); CREATININE 0.7 mg/dL (0.55-1.3); GLUCOSE,RANDOM 121 mg/dL (74-106); POTASSIUM 3.7 mmol/L (3.5-5.1); SGOT/AST 30 U/L (15-37); SGPT/ALT 53 U/L (13-61); SODIUM 140 mmol/L (136-145); TOT PROT 8.4 g/dl (6.4-8.2)
--- NOTE | 2018-06-03 16:41 | EKG ---
Test Reason : Blood Pressure : / mmHG Vent. Rate : 086 BPM Atrial Rate : 086 BPM P-R Int : 154 ms QRS Dur : 084 ms QT Int : 370 ms P-R-T Axes : 060 030 -03 degrees QTc Int : 442 ms NORMAL SINUS RHYTHM NONSPECIFIC ST AND T WAVE ABNORMALITY ABNORMAL ECG WHEN COMPARED WITH ECG OF 28-FEB-2017 15:55, NO SIGNIFICANT CHANGE WAS FOUND Confirmed by CAMILO CRUZ, LASHELL ([id number]) on 06/03/2018 4:41:18 PM Referred By: Confirmed By:LASHELL PAGE MD
== END 2018-06-03 15:19 | disposition home or self-care (01) ==
LOC: JER 12:21
PROC: 3E0333Z Introduction of Anti-inflammatory into Peripheral Vein, Percutaneous Approach (ICD-10-PCS; principal; 2018-06-03)
DX: R07.89 Other chest pain (principal); I10 Essential (primary) hypertension; E78.00 Pure hypercholesterolemia, unspecified; F41.9 Anxiety disorder, unspecified
CPT/HCPCS: 36415; 70450-TC; 72125-TC; 80053; 82550; 84484; 85025; 93005; 93010; 99283-25

== ENCOUNTER 2019-02-28 06:56 | Day surgery (SDC) | payer BC ==
[2019-02-22 16:36] VITALS: BMI 27.4
[2019-02-28] MEDS ORDERED: ACETAMINOPHEN 325 MG TABLET (FP) PO PRN (07:33)
[2019-02-28] MEDS ORDERED: IBUPROFEN 400 MG TABLET (FP) PO PRN (07:33)
--- NOTE | 2019-02-28 07:33 | HP ---
History & Physical Update - History History: No Change - Physical Physical: No Change - Assessment Assessment: No Change - Plan Plan: No Change (No change in HP)
[2019-02-28] MEDS ORDERED: PROMETHAZINE HCL 25 MG/1 ML VIAL IVPUSH PRN (08:49)
[2019-02-28] MEDS ORDERED: ONDANSETRON 4 MG/2 ML VIAL IVPUSH PRN (08:49)
[2019-02-28] MEDS ORDERED: oxyCODONE HCL 5 MG TABLET PO PRN (08:49)
[2019-02-28] MEDS ORDERED: LACTATED RINGERS SOLUTION 1,000 ML IV SCH (09:00)
[2019-02-28] MEDS ORDERED: MIDAZOLAM HCL 2 MG/2 ML SINGLE DOSE VIAL ONE ×2 (09:07)
--- NOTE | 2019-02-28 10:45 | OP ---
DATE OF OPERATION: 02/28/2019 PREOPERATIVE DIAGNOSIS: Endometrial polyp. OPERATION: Hysteroscopic myomectomy, suction dilation and curettage. POSTOPERATIVE DIAGNOSIS: Submucosal myoma and endometrial polyp. SURGEON: Sydney Duncan MD ANESTHESIA: General. ANESTHESIOLOGIST: Chen Velázquez MD DESCRIPTION OF PROCEDURE: Patient was taken to the operating room, placed in supine position, prepped and draped in the usual sterile fashion. A time-out was performed in accordance with hospital regulation. Speculum was placed in the vagina. Anterior lip of the cervix was grasped with a single-tooth tenaculum. Cervix was then dilated to accommodate the operative hysteroscope. Visualization revealed an enlarged endometrial polyp. Cautery and cutting of the polyp was then done. After polyp had been removed, submucosal myoma was noted, and cautery and cutting of the endometrial cavity revealed multiple myomas were removed. Suction dilation and curettage was then done followed by repeat procedure with cautery and cutting of the submucosal myoma to reshape the endometrial cavity. After suction dilation and curettage had been done and all specimens had been removed from the endometrial cavity, all instruments were then removed. Patient had tolerated procedure well. Estimated blood loss 30 mL. Tom [id number]
[2019-02-28] MEDS ORDERED: IBUPROFEN 800 MG/8 ML IJ IVPB ONE ×3 (10:54→11:05)
--- NOTE | 2019-02-28 10:58 | OP ---
Operative Note - Note: Operative Date: 02/28/19 Pre-Operative Diagnosis: endometrial polyp Operation: Hysteroscopic myomectomy. Suction DC Findings: endometrial polyp and submucosal myoma Post-Operative Diagnosis: Same as Pre-op Surgeon: Sydney Duncan Anesthesia: General Estimated Blood Loss (mls): 30 Operative Report Dictated: Yes
[2019-02-28 11:44] VITALS: TEMP 98.2
[2019-02-28 13:12] VITALS: BP 126/76; PULSE 88
--- NOTE | 2019-03-01 17:39 | PATH ---
Surgical Pathology Report Patient Name: MIGUEL GROSS [facility]. Rec. #: [id number] /Age/Gender: 1960 (Age: 59) / F Account: [id number] Location: [facility] SURGICAL Taken: 02/28/2019 Received: 02/28/2019 Reported: 03/01/2019 Physicians: Sydney Duncan M.D. Specimen(s) Received A: UTERINE POLYP AND FIBROIDS B: UTERINE POLYP AND FIBROIDS Clinical History Endometrial polyp Final Diagnosis A. UTERINE POLYPS AND FIBROIDS, EXCISION: FRAGMENTS OF ENDOMETRIAL POLYP. SEPARATE SMOOTH MUSCLE BUNDLES, CONSISTENT WITH SUBMUCOSAL LEIOMYOMA. SEPARATE INACTIVE/WEAKLY PROLIFERATIVE ENDOMETRIUM. B. UTERINE POLYPS AND FIBROIDS, EXCISION: FRAGMENTS OF SMOOTH MUSCLE BUNDLES, CONSISTENT WITH SUBMUCOSAL LEIOMYOMA. SEPARATE INACTIVE/WEAKLY PROLIFERATIVE ENDOMETRIUM. SEPARATE SQUAMOUS EPITHELIUM WITH NO SIGNIFICANT PATHOLOGIC CHANGE. Electronically Signed Duncan Caro M.D. Gross Description A. Received in formalin labeled "uterine polyps and fibroids," is a 3.1 x 2.3 x 0.3 cm aggregate of thompson, soft to rubbery portions of tissue. The formalin is filtered and the specimen is entirely submitted in 2 cassettes. B. Received fresh in a suction container labeled "uterine polyps and fibroids," is a 2.2 x 1.6 x 0.3 cm aggregate of thompson soft to rubbery portions of tissue. The formalin is filtered and the specimen is entirely submitted in one cassette. 02/28/2019 saudi02/28/2019
== END 2019-02-28 13:19 | disposition home or self-care (01) ==
LOC: JASU-SURG 06:56
PROVIDERS: ATTEND Obstetrics & Gynecology
PROC: 0UDB8ZX Extraction of Endometrium, Via Natural or Artificial Opening Endoscopic, Diagnostic (ICD-10-PCS; 2019-02-28)
PROC: 0UB98ZZ Excision of Uterus, Via Natural or Artificial Opening Endoscopic (ICD-10-PCS; principal; 2019-02-28 09:00)
PROC: 0UB98ZX Excision of Uterus, Via Natural or Artificial Opening Endoscopic, Diagnostic (ICD-10-PCS; 2019-02-28 09:00)
DX: N84.0 Polyp of corpus uteri (principal); D25.0 Submucous leiomyoma of uterus
CPT/HCPCS: 86850; 86900; 86901; 88305-TC; 94760

== ENCOUNTER 2019-11-22 15:32 | Emergency (ER) | payer OTHER ==
[2019-11-22 15:49] VITALS: TEMP 98.5; BMI 26.5
--- NOTE | 2019-11-22 15:49 | PDOC ---
Rapid Medical Evaluation Chief Complaint: Chest Pain Time Seen by Provider: 11/22/19 15:45 Medical Evaluation: Allergies Allergy/AdvReac Type Severity Reaction Status Date / Time No Known Allergies Allergy Verified 02/28/19 07:37 11/22/19 15:46 Pt is a 59 y/o F who presents to the ER with chest pain for 3 days. She states the chest pain is worse with movement and with breathing. She states the pain goes to the back and L arm. Also admits to headache. Exam: Tachycardic to 100, regular. S1S2 present, (-) m/r/g. Lungs CTAB Orders: labs, EKG, CXR, Pt to proceed to the ER for further evaluation Discharge Disposition - Diagnosis Chest pain Qualifiers: Chest pain type: unspecified Qualified Code(s): R07.9 - Chest pain, unspecified - Referrals - Patient Instructions - Post Discharge Activity
[2019-11-22 16:33] LABS: BASO % 0.3 % (0-2.0); EOS % 1.2 % (0-4.5); HEMATOCRIT 42.1 % (32.4-45.2); HEMOGLOBIN 13.8 GM/dL (10.7-15.3); LYMPH % 23.1 % (8-40); MCH 27.6 pg (25.7-33.7); MCHC 32.9 g/dl (32.0-36.0); MEAN CELL VOLUME 83.9 fl (80-96); MEAN PLT VOLUME 9.4 fl (7.5-11.1); MONO % 9.1 % (3.8-10.2); NEUT % 66.3 % (42.8-82.8); PLATELET COUNT 222 K/MM3 (134-434); RBC 5.02 M/mm3 (3.60-5.2); RDW 13.8 % (11.6-15.6); WHITE BLOOD COUNT 7.6 K/mm3 (4.0-10.0)
[2019-11-22 16:55] LABS: PROTHROMBIN TIME (PATIENT) 11.8 SEC (9.7-13.0)
[2019-11-22 16:58] LABS: ALBUMIN 4.1 g/dl (3.4-5.0); ALK PHOS 137 U/L (45-117); BILIRUBIN,TOTAL 0.3 mg/dL (0.2-1); BLOOD UREA NITROGEN 16.7 mg/dL (7-18); CALCIUM 9.6 mg/dL (8.5-10.1); CO2 25 mmol/L (21-32); CREATININE 0.8 mg/dL (0.55-1.3); GLUCOSE,RANDOM 106 mg/dL (74-106); MAGNESIUM 2.3 mg/dL (1.8-2.4); SGOT/AST 25 U/L (15-37); SGPT/ALT 50 U/L (13-61)
--- NOTE | 2019-11-22 17:01 | PDOC ---
History of Present Illness <Florentino Moody - Last Filed: 11/22/19 18:16> - General History Source: Patient Exam Limitations: No Limitations - History of Present Illness Initial Comments: 11/22/19 16:55 HPI: This is a 59 y/o female with a PMH of HTN, HLD, pre-diabetes, and lumbar and cervical radiculopathy presenting to the ED due to 3 days of left breast and shoulder tingling which radiates to her back. She reports that she had a similar episode 3 months ago which resolved on her own. The numbness and tingling is worse with exertion, and when laying on her left side. She also endorses pain in her cervical spine. She denies accompanying nausea, vomiting and diaphoresis. She admits to a cough and shortness of breath when laying on her left side at night. ROS: GENERAL/CONSTITUTIONAL: No fever/chills. No weakness. CARDIOVASCULAR: Yes chest tingling radiating to shoulder and back, and SOB when laying down RESPIRATORY: Yes cough and wheezing GASTROINTESTINAL: No nausea, vomiting GENITOURINARY: No dysuria, frequency, MUSCULOSKELETAL: Yes neck and back pain. SKIN: No rash NEUROLOGIC: No headache, vertigo, loss of consciousness, or change in strength/sensation. HEMATOLOGIC/LYMPHATIC: Takes ASA ALLERGIC/IMMUNOLOGIC: No hives or skin allergy. PMH: HTN, HLD, pre-diabetes PSx: Denied Social Hx: Denied etoh and tobacco Meds: Amlodipine, atorvastatin Allergies: Denied PE: GENERAL: Awake, alert, and fully oriented, in no acute distress. Sitting in bed conversing normally. in room. HEAD: No signs of trauma NECK: Normal ROM, no JVD, or masses LUNGS: Breath sounds equal, clear to auscultation bilaterally. No wheezes, and no crackles HEART: Regular rate and rhythm, normal S1 and S2 ABDOMEN: Soft, nontender, normoactive bowel sounds. EXTREMITIES: No edema. NEUROLOGICAL: Cranial nerves II through XII grossly intact. Normal speech, normal gait MUSCULOSKELETAL: Tenderness to palpation in cervical and thoracic spine. Chest numbness reproducible with left shoulder manipulation. BREAST EXAM: Breasts not tender to palpation. No erythema or edema. MDM: 11/22/19 17:59 This is a 59 y/o female with a PMH of HTN, HLD, pre-diabetes, and lumbar and cervical radiculopathy presenting to the ED due to 3 days of left breast and shoulder tingling which radiates to her back. This patient reports that this pain is chronic, and nothing was different today which made her come in. Patient stopped going to pain management and rehab. Pain is reproducible with shoulder movement. r/o ACS vs radiculopathy vs arthritis - CBC - CMP - Cardiac profile - EKG - CXR 11/22/19 18:10 CBC WBC 7.6 K/mm3 (4.0-10.0) 11/22/19 15:53 RBC 5.02 M/mm3 (3.60-5.2) 11/22/19 15:53 Hgb 13.8 GM/dL (10.7-15.3) 11/22/19 15:53 Hct 42.1 % (32.4-45.2) 11/22/19 15:53 MCV 83.9 fl (80-96) 11/22/19 15:53 MCH 27.6 pg (25.7-33.7) 11/22/19 15:53 MCHC 32.9 g/dl (32.0-36.0) 11/22/19 15:53 RDW 13.8 % (11.6-15.6) 11/22/19 15:53 Plt Count 222 K/MM3 (134-434) 11/22/19 15:53 MPV 9.4 fl (7.5-11.1) 11/22/19 15:53 Absolute Neuts (auto) 5.0 K/mm3 (1.5-8.0) 11/22/19 15:53 Neutrophils % 66.3 % (42.8-82.8) 11/22/19 15:53 Lymphocytes % 23.1 % (8-40) 11/22/19 15:53 Monocytes % 9.1 % (3.8-10.2) 11/22/19 15:53 Eosinophils % 1.2 % (0-4.5) 11/22/19 15:53 Basophils % 0.3 % (0-2.0) 11/22/19 15:53 Nucleated RBC % 0 % (0-0) 11/22/19 15:53 No anemia, no leukocytosis CMP Sodium 142 mmol/L (136-145) 11/22/19 15:53 Potassium 3.9 mmol/L (3.5-5.1) 11/22/19 15:53 Chloride 107 mmol/L (98-107) 11/22/19 15:53 Carbon Dioxide 25 mmol/L (21-32) 11/22/19 15:53 Anion Gap 10 MMOL/L (8-16) 11/22/19 15:53 BUN 16.7 mg/dL (7-18) 11/22/19 15:53 Creatinine 0.8 mg/dL (0.55-1.3) 11/22/19 15:53 Est GFR (CKD-EPI)AfAm 92.22 11/22/19 15:53 Est GFR (CKD-EPI)NonAf 79.57 11/22/19 15:53 Random Glucose 106 mg/dL (74-106) 11/22/19 15:53 Calcium 9.6 mg/dL (8.5-10.1) 11/22/19 15:53 Magnesium 2.3 mg/dL (1.8-2.4) 11/22/19 15:53 Total Bilirubin 0.3 mg/dL (0.2-1) 11/22/19 15:53 AST 25 U/L (15-37) 11/22/19 15:53 ALT 50 U/L (13-61) 11/22/19 15:53 Alkaline Phosphatase 137 U/L (45-117) H 11/22/19 15:53 Creatine Kinase 79 U/L (26-192) 11/22/19 15:53 Troponin I < 0.02 ng/ml (0.00-0.05) 11/22/19 15:53 Total Protein 8.0 g/dl (6.4-8.2) 11/22/19 15:53 Albumin 4.1 g/dl (3.4-5.0) 11/22/19 15:53 Troponin negative Heart score of 2 CXR with no acute pathology. 11/22/19 18:30 Patient declined acetaminophen and lidocaine patch for pain management. Will give follow-up with neurosurgery and pain management. 11/22/19 18:56 11/22/19 18:57 <Marline Hyman - Last Filed: 11/22/19 18:58> - General Chief Complaint: Chest Pain Stated Complaint: CHEST PAIN Time Seen by Provider: 11/22/19 15:45 Past History <Florentino Moody - Last Filed: 11/22/19 18:16> - Medical History Anemia: No Asthma: No Cancer: No Cardiac Disorders: No CVA: No COPD: No CHF: No Dementia: No Diabetes: Yes (borderline) GI Disorders: Yes (acid reflux) Disorders: No HTN: Yes Hypercholesterolemia: Yes Liver Disease: No Psychiatric Problems: Yes (ANXIETY.) Seizures: No Thyroid Disease: No - Surgical History Abdominal Surgery: No Appendectomy: No Cardiac Surgery: No Cholecystectomy: No Lung Surgery: No Neurologic Surgery: No Orthopedic Surgery: No - Reproductive History (#): 4 Para: 4 - Psycho-Social/Smoking History Smoking Status: No Smoking History: Never smoked Have you smoked in the past 12 months: No Number of Cigarettes Smoked Daily: 0 - Substance Abuse Hx (Audit-C & DAST Scrn) How often the patient has a drink containing alcohol: Never Score: In Men: 4 or > Positive; In Women: 3 or > Positive: 0 Screen Result (Pos requires Nsg. Audit-10AR): Negative <Marline Hyman - Last Filed: 11/22/19 18:58> - Medical History Allergies/Adverse Reactions: Allergies Allergy/AdvReac Type Severity Reaction Status Date / Time No Known Allergies Allergy Verified 02/28/19 07:37 Home Medications: Ambulatory Orders Amlodipine Besylate 5 mg PO DAILY 07/13/17 Atorvastatin Ca [Lipitor] 20 mg PO HS 02/21/18 Acetaminophen [Tylenol Arthritis] 650 mg PO PRN PRN 02/22/19 Ibuprofen [Motrin -] 600 mg PO PRN PRN 02/22/19 Aspirin [ASA -] 81 mg PO DAILY 02/28/19 Ibuprofen [Motrin -] 600 mg PO QID #28 tablet 02/28/19 *Physical Exam - Vital Signs Last Vital Signs Temp Pulse Resp BP Pulse Ox 98.5 F 92 H 20 136/80 97 11/22/19 15:44 11/22/19 17:17 11/22/19 17:17 11/22/19 17:17 11/22/19 17:17 <Florentino Moody - Last Filed: 11/22/19 18:16> - Vital Signs Last Vital Signs Temp Pulse Resp BP Pulse Ox 98.5 F 100 H 20 161/81 97 11/22/19 15:44 11/22/19 15:44 11/22/19 15:44 11/22/19 15:44 11/22/19 15:44 <Marline Hyman - Last Filed: 11/22/19 18:58> Heart Score/ECG Review - History History: Slightly suspicious - Electrocardiogram EKG: Normal - Age Age: 45-65 - Risk Factors Risk Factors Heart Score: Yes Hx Hypercholesterolemia, Yes Hx Hypertension Based on the list above the patient has:: 1-2 risk factors - Troponin Troponin: </= normal limit - Score Heart Score - Total: 2 <Marline Hyman - Last Filed: 11/22/19 18:58> ED Treatment Course - LABORATORY CBC & Chemistry Diagram: 11/22/19 15:53 11/22/19 15:53 - ADDITIONAL ORDERS Additional order review: Laboratory Results 11/22/19 11/22/19 15:53 15:53 PT with INR 11.80 INR 1.00 Sodium 142 Potassium 3.9 Chloride 107 Carbon Dioxide 25 Anion Gap 10 BUN 16.7 Creatinine 0.8 Est GFR (CKD-EPI)AfAm 92.22 Est GFR (CKD-EPI)NonAf 79.57 Random Glucose 106 Calcium 9.6 Magnesium 2.3 Total Bilirubin 0.3 AST 25 ALT 50 Alkaline Phosphatase 137 H Creatine Kinase 79 Troponin I < 0.02 Total Protein 8.0 Albumin 4.1 11/22/19 15:53 RBC 5.02 MCV 83.9 MCHC 32.9 RDW 13.8 MPV 9.4 Neutrophils % 66.3 Lymphocytes % 23.1 Monocytes % 9.1 Eosinophils % 1.2 Basophils % 0.3 <Florentino Moody - Last Filed: 11/22/19 18:16> - LABORATORY CBC & Chemistry Diagram: 11/22/19 15:53 11/22/19 15:53 - ADDITIONAL ORDERS Additional order review: 11/22/19 15:53 RBC 5.02 MCV 83.9 MCHC 32.9 RDW 13.8 MPV 9.4 Neutrophils % 66.3 Lymphocytes % 23.1 Monocytes % 9.1 Eosinophils % 1.2 Basophils % 0.3 <Marline Hyman - Last Filed: 11/22/19 18:58> Discharge - Discharge Information Problems reviewed: Yes - Admission No <Moody,Florentino - Last Filed: 11/22/19 18:16> - Discharge Information Problems reviewed: Yes - Admission No <Marline Hyman - Last Filed: 11/22/19 18:58> - Discharge Information Clinical Impression/Diagnosis: Chest pain Qualifiers: Chest pain type: unspecified Qualified Code(s): R07.9 - Chest pain, unspecified Condition: Stable Disposition: HOME - Follow up/Referral Referrals: Hunter Mayes MD [Primary Care Provider] - Derek Palomino MD [Staff Physician] - Eliseo Nails MD, FAANS [Staff Physician] - - Patient Discharge Instructions Patient Printed Discharge Instructions: DI for Atypical Chest Pain Additional Instructions: You were seen today for left sided chest pain worsening over the past several days. Your EKG, chest xray, and blood work were normal. The pain is not likely to be related to your heart or your lungs. It may be caused by a muscle pain or pain related to your arthritis. You can take over the counter Tylenol (Acetaminophen) as needed for pain. Take as directed on the package insert. Do not exceed the recommended dosage. Follow up with your primary care doctor within the next 1-2 days to make sure you are healing. You will need to call to make an appointment. The number is included in this packet. A copy of todays results are attached to this packet. Take it to the appointment so your doctor can review them. You can also follow up with a neurosurgeon. I have placed a referral for you to see Dr. Pimentel. You will need to call to make an appointment. The number is included in this packet. You can also follow up with a pain specialist. I have placed a referral for you to see Dr. Palomino. You will need to call to make an appointment. The number is included in this packet. Go to the nearest emergency department if your condition worsens or you feel like you need additional emergency evaluation. Print Language: TRINIDADIAN - Post Discharge Activity
[2019-11-22 17:17] LABS: ANION GAP 10 MMOL/L (8-16); CHLORIDE 107 mmol/L (98-107); POTASSIUM 3.9 mmol/L (3.5-5.1); SODIUM 142 mmol/L (136-145)
[2019-11-22 17:18] VITALS: BP 136/80; PULSE 92
--- NOTE | 2019-11-22 18:02 | PDOC ---
Documentation entered by Niyah Castellano SCRIBE, acting as scribe for Irena Leonard MD. Irena Leonard MD: This documentation has been prepared by the Ernesto rivera Xhesika, SCRIBE, under my direction and personally reviewed by me in its entirety. I confirm that the documentation accurately reflects all work, treatment, procedures, and medical decision making performed by me. Attending Attestation - Resident Resident Name: Marline Hyman - ED Attending Attestation I have performed the following: I have examined & evaluated the patient, The case was reviewed & discussed with the resident, I agree w/resident's findings & plan, Exceptions are as noted - HPI HPI: 11/22/19 17:07 The patient is a 59 y/o F with a PMH of HTN, HLD, pre-diabetes, and lumbar and cervical radiculopathy who presents to the ED for left breast and shoulder tingling x3days. Pt states her symptoms are worse with exertion, and when laying on her left side. Pt states her numbness adn tingling radiate to her back and endorses a cough and shortness of breath when laying on her left side at night. Pt reports having a similar episode 3 months ago which self resolved. Pt denies fevers, chills, nausea, vomiting, diarrhea, constipation. Denies any URI symptoms. Allergies: NKDA PCP: Hunter Huitron - Physicial Exam PE: 11/22/19 17:59 wnwd 59 yo female has experienced left shoulder and arm tingling periodically that runs into her back and chest .This occurs every 3 months and she sees a pain doctor for this 11/22/19 18:00 head ncat neck supple lungs cta b/l cvs [id number] abdomen no rebound, nontender torso reproducible trapezius pain extremities no deformities, motor strength 5/5 b/l skin warm and dry neuro axox3, ambulatory psych anxious 11/22/19 18:14 - Medical Decision Making 11/22/19 18:14 ekg 96 bpm negaitve troponin cxr napd 11/22/19 18:20 pt will followup with 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 specialist 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 Your EKG, chest xray, and blood work were normal. The pain is not likely to be related to your heart or your lungs. It may be caused by a muscle pain or pain related to your arthritis. You can take over the counter Tylenol (Acetaminophen) as needed for pain. Take as directed on the package insert. Do not exceed the recommended dosage. Follow up with your primary care doctor within the next 1-2 days to make sure you are healing. You will need to call to make an appointment. The number is included in this packet. A copy of todays results are attached to this packet. Take it to the appointment so your doctor can review them. You can also follow up with a neurosurgeon. I have placed a referral for you to see Dr. Pimentel. You will need to call to make an appointment. The number is included in this packet. You can also follow up with a pain specialist. I have placed a referral for you to see Dr. Palomino. You will need to call to make an appointment. The number is included in this packet. Go to the nearest emergency department if your condition worsens or you feel like you need additional emergency evaluation. Print Language: WOLOF - Post Discharge Activity
--- NOTE | 2019-11-23 09:20 | EKG ---
Test Reason : Blood Pressure : / mmHG Vent. Rate : 096 BPM Atrial Rate : 096 BPM P-R Int : 144 ms QRS Dur : 082 ms QT Int : 360 ms P-R-T Axes : 047 014 018 degrees QTc Int : 454 ms NORMAL SINUS RHYTHM NONSPECIFIC ST ABNORMALITY ABNORMAL ECG WHEN COMPARED WITH ECG OF 03-JUN-2018 12:29, NO SIGNIFICANT CHANGE WAS FOUND Confirmed by MD RUFF PENG ([id number]) on 11/23/2019 9:20:03 AM Referred By: Confirmed By:SABI RUFF MD
== END 2019-11-22 18:22 | disposition home or self-care (01) ==
LOC: JER 15:32
DX: R07.9 Chest pain, unspecified (principal)
CPT/HCPCS: 36415; 71046-TC-FY; 80053; 82550; 83735; 84484; 85025; 85610; 93005; 93010; 99285-25

== ENCOUNTER 2021-08-31 20:57 | Emergency (ER) | payer BC, OTHER ==
[2021-08-31 21:01] VITALS: BP 153/82; PULSE 101; TEMP 98.1; BMI 26.5
[2021-08-31] MEDS ORDERED: KETOROLAC TROMETHAMINE 60 MG/2 ML VIAL IM ONE (21:04)
[2021-08-31] MEDS ORDERED: KETOROLAC TROMETHAMINE 60 MG/2 ML VIAL ONE (21:07)
== END 2021-08-31 23:21 | disposition home or self-care (01) ==
LOC: FER 20:57
PROC: 3E0233Z Introduction of Anti-inflammatory into Muscle, Percutaneous Approach (ICD-10-PCS; principal; 2021-08-31)
DX: M25.562 Pain in left knee (principal)
CPT/HCPCS: 73562-TC-LT-FY; 93970-TC; 99284-25